=== PATIENT | female | born 1955 | race American Indian/Alaskan Native ===

== ENCOUNTER 2017-04-13 09:13 | Outpatient (CLI) | payer MEDICARE ==
--- NOTE | 2017-04-13 11:13 | Mammography Report ---
BILATERAL DIGITAL SCREENING MAMMOGRAM with CAD: 04/13/17 09:13:00 CLINICAL: Routine screening. COMPARISON:04/12/16 FINDINGS: The breasts are almost entirely fatty. No mass, architectural distortion or suspicious calcifications. IMPRESSION: No mammographic evidence of malignancy. BI-RADS CATEGORY: 1 - - Negative RECOMMENDATION: Routine mammographic screening in one year. COMMENT: Patient follow-up letters are generated by our [employer] application.
== END 2017-04-13 09:14 | disposition home or self-care (01) ==
LOC: SPVWC 09:13
PROVIDERS: ATTEND Family Medicine
DX: Z12.31 Encounter for screening mammogram for malignant neoplasm of breast (principal)
CPT/HCPCS: 77067; G0202

== ENCOUNTER 2017-05-12 10:43 | Day surgery (SDC) | payer MEDICARE ==
[~2017-05-12 10:43] MED LIST: IOPIDINE ONE; MYDRIACYL ONE; NEOFRIN ONE
[2017-05-12 11:20] VITALS: BP 139/80
[2017-05-12] MEDS ORDERED: NEOFRIN OU ONE (11:30)
[2017-05-12] MEDS ORDERED: NEOFRIN OD ONE (11:30)
[2017-05-12] MEDS ORDERED: IOPIDINE OU ONE (11:30)
[2017-05-12] MEDS ORDERED: IOPIDINE OD ONE (11:30)
[2017-05-12] MEDS ORDERED: MYDRIACYL OU ONE (11:30)
[2017-05-12] MEDS ORDERED: MYDRIACYL OD ONE (11:30)
== END 2017-05-12 12:40 | disposition home or self-care (01) ==
LOC: OR 10:43
PROVIDERS: ATTEND Specialist
DX: H26.491 Other secondary cataract, right eye (principal)

== ENCOUNTER 2017-05-19 10:45 | Day surgery (SDC) | payer MEDICARE ==
[~2017-05-19 10:45] MED LIST changes: +AK-Dilate ONE; -NEOFRIN ONE
[2017-05-19] MEDS ORDERED: MYDRIACYL OS ONE (11:10)
[2017-05-19] MEDS ORDERED: IOPIDINE OS ONE (11:10)
[2017-05-19] MEDS ORDERED: PHENYLEPHRINE HCL OS ONE (11:10)
[2017-05-19 13:06] VITALS: BP 154/90
== END 2017-05-19 12:49 | disposition home or self-care (01) ==
LOC: OR 10:45
PROVIDERS: ATTEND Specialist
DX: H26.492 Other secondary cataract, left eye (principal)

== ENCOUNTER 2018-04-18 08:23 | Outpatient (CLI) | payer MEDICARE ==
--- NOTE | 2018-04-18 11:33 | Mammography Report ---
BILATERAL DIGITAL SCREENING MAMMOGRAM with CAD: 04/18/18 08:23:00 CLINICAL: Routine screening. COMPARISON:04/13/17 FINDINGS: The breasts are almost entirely fatty. No mass, architectural distortion or suspicious calcifications. IMPRESSION: No mammographic evidence of malignancy. BI-RADS CATEGORY: 1 - - Negative RECOMMENDATION: Routine mammographic screening in one year. COMMENT: Patient follow-up letters are generated by our [employer] application.
--- NOTE | 2018-04-18 11:38 | Mammography Report ---
BONE DEXA:04/18/18 08:23:00 CLINICAL: Postmenopausal. COMPARISON: 04/10/15 TECHNIQUE: Two site bone DEXA performed on an Hologic scanner. FINDINGS: The average BMD of the lumbar spine L1-L4 is 0.939g/cm squared with a T-score of -1.9 and a Z-score of 0. This compares to 0.969g/cm squared on the last exam and represents a -3.1% change from the previous baseline. The average BMD of the right hip is 1.045g/cm squared with a T-score of +0.1 and a Z-score of +0.5. This compares to 1.061g/cm squared on the last exam and represents a -1.5% change from the previous baseline. IMPRESSION: 1. WHO classification: Osteopenia with increased fracture risk based on spine measurements. 2. WHO classification: Normal with average fracture risk based on right hip measurements. 3. A modest decline in both spine and right hip BMD since the last exam. RECOMMENDATION: Clinical correlation and routine screening. DEFINITIONS: BMD = Bone Mineral Density T-score = BMD related to mean peak bone mass of young adult (mean expressed in Standard Deviation) Z-score = Age matched BMD expressed in SD World Health Organization (WHO) Diagnostic Criteria Normal T-score > -1 SD Osteopenia T-score between -1 and -2.4 SD Osteoporosis T-score -2.5 SD or below NOTE: BMD is not the only risk factor for fracture; also consider factors such as the patient's age, risk of falling, previous osteoporotic fracture, family history of osteoporotic fractures, current smoker, and low body weight. Z-scores are not calculated if >80 years of age.
== END 2018-04-18 08:24 | disposition home or self-care (01) ==
LOC: SPVWC 08:23
PROVIDERS: ATTEND Family Medicine
DX: Z12.31 Encounter for screening mammogram for malignant neoplasm of breast (principal); Z13.820 Encounter for screening for osteoporosis; M85.80 Other specified disorders of bone density and structure, unspecified site; F17.210 Nicotine dependence, cigarettes, uncomplicated; Z78.0 Asymptomatic menopausal state
CPT/HCPCS: 77067; 77080

== ENCOUNTER 2019-05-30 09:18 | Outpatient (CLI) | payer MEDICARE ==
--- NOTE | 2019-05-31 13:26 | Mammography Report ---
DIGITAL SCREENING MAMMOGRAM WITH CAD, 05/30/2019 INDICATION: Routine screening mammography. TECHNIQUE: Digital bilateral 2D mammography was obtained in the craniocaudal and mediolateral obliq ue projections. This examination was interpreted with the benefit of Computer-Aided Detection analysi s. COMPARISON: 04/13/2017 and 04/18/2018 FINDINGS: Breast Density: The breasts are almost entirely fatty. There is no evidence of dominant mass, suspicious calcifications or architectural distortion in eithe r breast. IMPRESSION: No mammographic evidence of malignancy. Follow up recommendation: Routine yearly BI-RADS Category 1: Negative. A "normal" or negative report should not discourage follow up or biopsy of a clinically significant f inding. A written summary of these findings will be mailed to the patient. The patient will be entered into a mammography reporting system which will generate a reminder letter for the patient's next appointmen t at the appropriate interval. The [employer] recommends yearly mammograms starting at age 40 and continuing as l lizandro as a woman is in good health. Breast MRI is recommended for women with an approximate 20-25% or greater lifetime risk of breast cancer, including women with a strong family history of breast or ova karen cancer or who have been treated for Hodgkin's disease. Signer Name: Kirill Bach MD Signed: 05/31/2019 1:21 PM Workstation Name: [id number]
== END 2019-05-30 09:19 | disposition home or self-care (01) ==
LOC: SPVWC 09:18
PROVIDERS: ATTEND Family Medicine
DX: Z12.31 Encounter for screening mammogram for malignant neoplasm of breast (principal)
CPT/HCPCS: 77067